=== PATIENT | male | born 1935 | race Caucasian/White ===

== ENCOUNTER → 2020-09-15 09:45 | Outpatient (CLI) | payer MEDICARE, SELFPAY | PROVIDERS: PCP Family Medicine; Referring Provider Nurse Practitioner Family; Visit Provider Nurse Practitioner Family | DX: R05 Cough (principal) | CPT/HCPCS: 87635; C9803; U0003 ==

== ENCOUNTER → 2023-08-22 | Outpatient (CLI) | payer MEDICARE, SELFPAY ==
--- NOTE | 2023-08-22 14:36 | RAD_ITS ---
STUDY: X-RAY - CERVICAL SPINE REASON FOR EXAM: Male, 88 years old. M47.12 TECHNIQUE: 3 view(s) of the cervical spine were obtained. COMPARISON: MR cervical spine September 04, 2010 report only FINDINGS: Normal anterior atlantoaxial articulation. Normal odontoid process. Mild torticollis. Slight anterior subluxation C4-5. Normal cervical lordosis. There is multi-level endplate spondylosis. There is multi-level degenerative disc disease with multilevel disc space narrowing. The soft tissue structures are unremarkable. Calcified plaque in the carotids bilaterally. RAD/Cerv Spine 2 or 3 Views IMPRESSION: Slight anterior subluxation C4-5. No fracture noted. Electronically Signed: Martin Alves MD at 17:07 EDT ,
== END | disposition home or self-care (01) ==
LOC: RAD 14:28
PROVIDERS: PCP Family Medicine; Referring Provider Anesthesiology Pain Medicine; Visit Provider Anesthesiology Pain Medicine
DX: M47.15 Other spondylosis with myelopathy, thoracolumbar region (principal)
CPT/HCPCS: 72040